=== PATIENT | male | born 1985 | race Caucasian/White ===

== ENCOUNTER 2020-05-26 12:02 | Emergency (ER) | payer OTHER, SELFPAY ==
[2020-05-26 12:08] VITALS: BP 141/99; PULSE 82; RESP 20; TEMP 37.2; O2SAT 97
--- NOTE | 2020-05-26 12:17 | ED.EYEPROB ---
HPI - Eye Problem General Chief complaint: Eye Problems Stated complaint: Right eye swollen Source: patient and RN notes reviewed Mode of arrival: ambulatory Limitations: no limitations History of Present Illness HPI Narrative: This is a 34 years old male presents to the office for an evaluation of right eye swollen for two-three days. He woke up Tuesday morning with this symptoms. Denies associated symptoms such as fever, light flashing, nausea or vomiting. Denies trauma or injury. He does not wear contact lenses. He try warm/cold compress on his affected side with no relief. He also takes some Benadryl with no changes. He admits to recent sinus congestions which has resolved prior to the onset of eye swelling. Related Data Allergies Allergy/AdvReac Type Severity Reaction Status Date / Time No Known Allergies Allergy Unverified 05/26/20 12:12 Review of Systems Review of Systems: Narrative: CONSTITUTIONAL: Denies fever, chills EYES: Reports slight blurry vision on right eye with discharge and upperlid swelling ENT: Denies rhinorrhea, congestion, sore throat, otalgia. CARDIOVASCULAR: Denies chest pain, palpitation RESPIRATORY: Denies dyspnea, wheezing, cough GASTROINTESTINAL: Denies abdominal pain, nausea, vomiting SKIN: Denies insect bite MUSCULOSKELETAL: Denies joints pain NEUROLOGIC: Denies lightheaded All other systems reviewed are negative, except as documented in HPI. PMFSH Social History Social History (Updated 05/26/20 @ 12:40 by LATRELL Patel) Tobacco type: smokeless tobacco Comments At time of signature, I agree with nursing past medical, surgical, social and family history. There is no relevant family history pertinent to the presenting complaint. Exam Narrative: Exam Narrative: GENERAL: This is a well-nourished, well-developed patient, in no apparent distress. EYES: PERRL. EMOI. Right upperlid appears erythema with edematous, warmth and tender to palpation; no pain in the lower lid/erythema/edematous. Vision is grossly intact. EARS: External ears normal, auditory canals clear and without drainage, TMs normal without perforation. Hearing grossly intact. NOSE: External nose normal with no obvious nasal discharge, nares without redness, no rhinorrhea. THROAT: Mucous membranes moist, posterior pharynx clear. NECK: Neck supple, non-tender without lymphadenopathy, masses or thyromegaly. CARDIOVASCULAR: Regular rate and rhythm without murmurs, gallops, or rubs. RESPIRATORY: Clear to auscultation. Breath sounds equal bilaterally. No wheezes, rales, or rhonchi. GASTROINTESTINAL: Abdomen soft, non-tender, nondistended. Bowel sounds are active. No hepato-splenomegaly, or palpable masses. No guarding. NEURO: awake, alert, and oriented to person, place and time. There were no obvious focal neurologic abnormalities. Steady gait Piyush Coma Scale Eye Opening: Spontaneous 4 [place] Coma Scale Motor: Obeys Commands 6 [place] Coma Scale Verbal: Oriented 5 Course Vital Signs Vital signs: Vital Signs Temperature 99.0 F 05/26/20 12:08 Pulse Rate 82 05/26/20 12:08 Respiratory Rate 20 05/26/20 12:08 Blood Pressure 141/99 H 05/26/20 12:08 Pulse Oximetry 97 05/26/20 12:08 Temperature 99.0 F 05/26/20 12:08 Pulse Rate 82 05/26/20 12:08 Respiratory Rate 20 05/26/20 12:08 Blood Pressure 141/99 H 05/26/20 12:08 Pulse Oximetry 97 05/26/20 12:08 MDM - Eye Problem MDM Narrative Medical decision making narrative: This is likely an allergic reaction/irritation since patient did not has systemic reaction; however I put patients on Bactrim since there was a small pimple right above his eye brow to cover orbital cellulitis. Elevated BP noted: patient is informed that they may have pre-hypertension or hypertension based on a blood pressure reading in the department. I recommend the patient call the primary care provider listed on their discharge instructions or a physician of their flower
[2020-05-26] MEDS: methylPREDNISolone ACETATE 80 MG/ML VIAL IM (12:40)
== END 2020-05-26 13:02 | disposition home or self-care (01) ==
PROVIDERS: Emergency Provider Nurse Practitioner; PCP Family Medicine
DX: H02.841 Edema of right upper eyelid (principal); H57.11 Ocular pain, right eye
CPT/HCPCS: 96372; 99213; G0463; J1040